=== PATIENT | female | born 1950 | race Caucasian/White ===

== ENCOUNTER 2017-10-11 22:20 | Emergency (ER) | payer OTHER, MEDICARE ==
[~2017-10-11] VITALS: Ht 165.1 cm; Wt 97.0 kg
[~2017-10-11 22:20] MED LIST: ALPRAZOLAM0.5 M4 PO; AMARYL 2 MG2 MG PO; AMLODIPINE BESY10 MG PO; CALCIUM ACETAT667 M3 PO; CHILDREN'S ASPI81 M1 PO; CHOLESTYRAMINE1 PO1 PO; COZAAR 50MG TAB50 MG PO; COZAAR50 M1 PO; DIPHENOX/ATROPI1 TAB PO; DIPHENOXYLATE/A1 TAB PO; IMIPRAMINE HCL25 M1 PO; IMIPRAMINE HCL50 M1 PO; ISOSORBIDE MONO30 M1 PO; LASIX80 MG PO; LEVOTHYROXINE0.2 M2 PO; LEVOTHYROXINE125 MCG PO; LIPITOR20 M2 PO; LOPRESSOR 25MG25 MG PO; MACROBID100 MG PO; METOPROLOL SUCC25 M1 PO; NEPHRO-VITE TA0.8 MG PO; OMEPRAZOLE20 M2 PO; OMEPRAZOLE40 MG PO; PROAIR HFA8.5 GM INH; PROTONIX 40MG T40 MG PO; RENVELA800 MG PO; SENSIPAR30 M1 PO; TRADJENTA5 M1 PO; URSODIOL300 MG PO
--- NOTE | 2017-10-11 22:23 | ED GI/GU/ABDOMINAL COMPLAINT ---
History of Present Illness General Chief Complaint: Nausea, Vomiting, Diarrhea Stated Complaint: BIBA C/C VOMITING X 1 MONTH Source: patient Exam Limitations: no limitations Vital Signs & Intake/Output Vital Signs & Intake/Output Vital Signs Date Time Temp Pulse Resp B/P B/P Pulse O2 O2 Flow FiO2 Mean Ox Delivery Rate 10/12 0158 98.4 70 20 180/88 98 Room Air 10/12 0044 80 190/90 10/12 0020 98.3 80 18 190/90 96 Room Air 10/11 2223 97.3 86 18 205/93 97 Room Air ED Intake and Output 10/12 0000 10/11 1200 Intake Total Output Total Balance Patient 214 lb Weight Weight Reported by Patient Measurement Method Allergies Coded Allergies: NO KNOWN ALLERGIES (09/25/14) Reconcile Medications Albuterol Sulfate (Proair Hfa) 90 MCG HFA.AER.AD 2 INH INH Q6P PRN TROUBLE BREATHING Alprazolam 0.5 MG TABLET 1 TAB PO DAILY ANXIETY (Reported) Aspirin (Children's Aspirin) 81 MG TAB.CHEW 1 TAB PO DAILY HEART HEALTH ( Reported) Atorvastatin Calcium (Lipitor) 20 MG TABLET 1 TAB PO DAILY CHOLESTEROL ( Reported) Calcium Acetate 667 MG CAPSULE 4 CAP PO TID SUPPLEMENT (Reported) Cinacalcet HCl (Sensipar) 30 MG TABLET 1 TAB PO DAILY UNKNOWN (Reported) Imipramine HCl 25 MG TABLET 1 TAB PO DAILY PANIC ATTACKS (Reported) Imipramine HCl 50 MG TABLET 1 TAB PO DAILY PANIC ATTACKS (Reported) Isosorbide Mononitrate (Isosorbide Mononitrate ER) 30 MG TAB.ER.24H 1 TAB PO DAILY HEART (Reported) Levothyroxine Sodium 125 MCG TABLET 1 TAB PO DAILY AC THYROID (Reported) Linagliptin (Tradjenta) 5 MG TABLET 1 TAB PO DAILY DM (Reported) Losartan Potassium (Cozaar) 50 MG TABLET 1 TAB PO DAILY HTN (Reported) Metoclopramide HCl (Reglan) 10 MG TABLET 1 TAB PO 4 TIMES/DAY NAUSEA, VOMITING. 30 minutes before meals and bedtime Metoprolol Succinate 25 MG TAB 1 TAB PO DAILY HTN (Reported) Nephro-Vitamins (Nephro-Kiesha Tablet) 0.8 MG TABLET 1 TAB PO DAILY SUPPLEMENT (Reported) Omeprazole 20 MG CAPSULE.DR 1 CAP PO DAILY GI (Reported) Ondansetron (Zofran Odt) 4 MG TAB.RAPDIS 1 TAB SL 4 TIMES/DAY PRN NAUSEA Triage Nurses Notes Reviewed? yes ? n Is pt currently ? No Duration: week(s):, waxing and waning Timing: recent history Quality/Severity: burning, cramping Location: generalized abdomen Radiation: no radiation Activities at Onset: none Modifying Factors: Worsens With: vomiting. Associated Symptoms: abdominal pain, nausea/vomiting HPI: 67 yo woman h/o left arm fracture h/o esrd on hemodialysis presents with several weeks of intermittent vomiting, "Last week, I vomited once , but then today, I vomited 5-6 times." Mild mid epigastric abdominal discomfort. No fever, chest pain, dyspnea, diarrhea, syncopal symptoms. She is otherwise well and does not identify any etiology. Past History Travel History Traveled to [place] past 21 day No Medical History Any Pertinent Medical History? see below for history Neurological: NONE EENT: NONE Cardiovascular: CHF, myocardial infarction, HTN, HIGH CHOL PTCA/stents Respiratory: NONE Gastrointestinal: upper GI bleed Hepatic: NONE Renal: ESRD on HD Musculoskeletal: CARPAL TUNNEL LEFT HAND Psychiatric: anxiety, depression Endocrine: diabetes, hypothyroidism Blood Disorders: NONE Cancer(s): UTERINE CANCER 1998 History of MRSA: No History of VRE: No History of CDIFF: No Surgical History Surgical History: non-contributory Psychosocial History Who do you live with Patient/Self Services at Home None What is your primary language Dutch Tobacco Use: Quit >30 days ago Family History Family History, If Any: FATHER FH: colon cancer MOTHER FH: lung cancer BROTHER FH: kidney cancer Hx Contributory? No Review of Systems Review of Systems Constitutional: Reports: no symptoms. EENTM: Reports: no symptoms. Respiratory: Reports: no symptoms. Cardiovascular: Reports: no symptoms. GI: Reports: no symptoms. Genitourinary: Reports: no symptoms. Musculoskeletal: Reports: no symptoms. Skin: Reports: no symptoms. Neurological/Psychological: Reports: no symptoms. Hematologic/Endocrine: Reports: no symptoms. Immunologic/Allergic: Reports: no symptoms. All Other Systems: Reviewed and Negative Physical Exam Physical Exam General Appearance: well developed/nourished, no apparent distress Head: atraumatic, normal appearance Eyes: Bilateral: normal appearance. Ears, Nose, Throat, Mouth: hearing grossly normal, moist mucous membrane Neck: normal inspection, supple, full range of motion Respiratory: normal breath sounds, chest non-tender, no respiratory distress, quiet respiration, lungs clear Cardiovascular: regular rate/rhythm Gastrointestinal: normal bowel sounds, soft, mild mid epigastric tenderness Back: normal inspection Extremities: normal range of motion Neurologic/Psych: no motor/sensory deficits, awake, alert, oriented x 3 Skin: intact, normal color, warm/dry Core Measures ACS in differential dx? No Sepsis Present: No Sepsis Focused Exam Completed? No Progress Differential Diagnosis: biliary colic, bowel obstruction, diverticulitis, gastritis, hepatitis Plan of Care: Orders Procedure Date/time Status TROPONIN LEVEL 10/11 2222 Complete LIPASE 10/11 2222 Complete HEPATIC FUNCTION PANEL 10/11 2222 Complete CBC WITHOUT DIFFERENTIAL 10/11 2222 Complete BASIC METABOLIC PANEL 10/11 2222 Complete AMYLASE 10/11 2222 Complete EKG 10/11 2222 Active Laboratory Tests 10/11/178: Anion Gap 18 H, Estimated GFR 4 L, BUN/Creatinine Ratio 7.0, Glucose 182 H, Calcium 9.4, Total Bilirubin 0.7, Direct Bilirubin 0.7 H, AST 20, ALT 26, Alkaline Phosphatase 364 H, Troponin I 0.02, Total Protein 7.2, Albumin 3.9, Amylase 93, Lipase 414 H, CBC w Diff NO MAN DIFF REQ, RBC 3.84 L, MCV 89.7, MCH 30.1, MCHC 33.5, RDW 15.2 H, MPV 6.5 L, Gran % 77.7 H, Lymphocytes % 13.9 L, Monocytes % 4.5, Eosinophils % 3.8, Basophils % 0.1, Absolute Granulocytes 5.0, Absolute Lymphocytes 0.9 L, Absolute Monocytes 0.3, Absolute Eosinophils 0.2, Absolute Basophils 0 10/11/172222: D-Dimer High Sensitivty Cancelled Diagnostic Imaging: Viewed by Me: Radiology Read, CT Scan. Discussed w/RAD: Radiology Read, CT Scan. Radiology Impression: PATIENT: YUDITH ORELLANA PRESENT AGE: 67 PATIENT ACCOUNT NO: [id number] : 48 LOCATION: [facility] ORDERING PHYSICIAN: Louie Rogers MD SERVICE DATE: 10/11/17 EXAM TYPE: CAT - CT ABD & PELVIS W/O IV CONTRAS EXAMINATION: CT ABDOMEN AND PELVIS WITHOUT CONTRAST CLINICAL INFORMATION: Vomiting. COMPARISON: Abdominal CT from 09/26/2014. TECHNIQUE: Multidetector volumetric imaging was performed from the superior aspect of the liver through the pubic symphysis. Sagittal and coronal reformatted images were obtained on the technologist's workstation. DLP: 1054.3 mGy-cm FINDINGS: The imaged portions of the lungs are clear. Mild cardiomegaly is stable. There are no pleural effusions. The patient is status post a prior cholecystectomy. Significant mesenteric vascular calcifications are again visible. Hepatomegaly is unchanged. The unenhanced spleen, pancreas, and adrenal glands are grossly unremarkable. Multiple bilateral renal cysts are present, also evident on previous imaging. There is an exophytic 3 cm nodular lesion arising from the posterolateral right renal cortex which does not measure fluid attenuation and was not present on the prior study. Renal cortical atrophy is unchanged. There is no hydronephrosis. Moderate atherosclerotic wall calcifications noted in the abdominal aorta without aneurysmal dilatation. No retroperitoneal adenopathy is seen. Gastric varices are again visible. There are multiple surgical clips along the pelvic rucker, also evident on prior imaging. Scar visualized in the midline lower abdominal wall as well. There is no evidence of a bowel obstruction. A few scattered colonic diverticula are present without pericolonic inflammatory change. No large bowel thickening is seen. The bladder is partially distended. The patient has had a prior hysterectomy and bilateral oophorectomy. No free air or free fluid is seen. No drainable fluid collection is identified. No acute osseous abnormality is seen. Fatty marrow changes are pronounced in the sacrum. There are new degenerative endplate Schmorl's nodes at the lower thoracic levels with further loss of disc height and endplate spurring. Vacuum disc phenomena also present within the discs from the T9-T12 levels. IMPRESSION: No acute intra-abdominal or pelvic process on this limited noncontrast study. No free air or free fluid. No evidence of a bowel obstruction. Stable hepatomegaly and gastric varices. Mild cardiomegaly. Multiple renal cysts. No hydronephrosis. New 3 cm exophytic soft tissue nodular lesion arising from the right kidney which does not measure simple fluid attenuation. Although this may represent a proteinaceous or hemorrhagic cyst, a solid mass cannot be ruled out and further evaluation with renal sonography or a contrast enhanced study is recommended. Scattered colonic diverticula without evidence of diverticulitis. Chronic postsurgical changes. Imaging findings discussed with Dr. Rogers at 12:20 AM on 10/12/2017. DICTATED BY: Kristopher Coleman MD DATE/TIME DICTATED:10/12/172 CHAIN TESTING MACHINE OPERATOR:MAO DATE/ TIME TRANSCRIBED:10/12/172 CONFIDENTIAL, DO NOT COPY WITHOUT APPROPRIATE AUTHORIZATION. <Electronically signed in Other Vendor System> SIGNED BY: Kristopher Coleman MD 10/12/17 0022 Initial ED EKG: rbbb lafb Departure Departure Disposition: HOME OR SELF CARE Condition: Stable Clinical Impression Primary Impression: Abdominal pain Secondary Impressions: Vomiting Referrals: Gordon MUIR,Reagan Rios (PCP/Family) Departure Forms: Customer Survey General Discharge Information Prescriptions: Current Visit Scripts Ondansetron (Zofran Odt) 1 TAB SL 4 TIMES/DAY PRN NAUSEA #20 TAB Ref 1 Metoclopramide HCl (Reglan) 1 TAB PO 4 TIMES/DAY #120 TAB 30 minutes before meals and bedtime Comments 10/12/17, 0:18am... discussed with dr. coleman, radiologist. pt with 3cm right renal mass.... merits renal u/s or iv contrast. no other acute process. 10/12/17, 1:45am... discussed with patient at length... including mass in kidney. Pt expressed understanding at importance of follow up ultrasound. After supportive medications, pt tolerated oral fluids in the ED and felt comfortable being discharged. I suspect gastroparesis. I wrote for zofran and reglan. Close follow up advised.
[2017-10-11 22:55] LABS: ABSOLUTE BASOPHIL COUNT 0 /CUMM (0.0-0.2); ABSOLUTE EOSINOPHIL COUNT 0.2 /CUMM (0.0-0.7); ABSOLUTE LYMPH COUNT 0.9 /CUMM (1.2-3.4); ABSOLUTE MONOCYTE COUNT 0.3 /CUMM (0.10-0.60); BASOPHIL % 0.1 % (0.0-2.0); EOSINOPHIL % 3.8 % (0-5); GRANULOCYTE % 77.7 % (42.2-75.2); HEMATOCRIT 34.4 % (37-47); MEAN CORPUSCULAR HGB 30.1 PG (27.0-31.0); MEAN CORPUSCULAR HGB CONC 33.5 G/DL (33.0-37.0); MEAN CORPUSCULAR VOLUME 89.7 FL (81.0-99.0); MEAN PLATELET VOLUME 6.5 FL (7.4-10.4); PLATELET COUNT 245 /CUMM (130-400); RBC DISTRIBUTION WIDTH 15.2 % (11.5-14.5); RED BLOOD CELL CT 3.84 /CUMM (4.20-5.40); WHITE BLOOD CELL COUNT 6.4 /CUMM (4.8-10.8)
--- NOTE | 2017-10-11 23:29 | RADIOLOGY REPORT ---
EXAMINATION: XR PORTABLE CHEST CLINICAL INFORMATION: Chest pain. COMPARISON: Chest x-ray from 08/20/2017. TECHNIQUE: Portable frontal view of the chest was obtained. FINDINGS: No airspace opacities or pleural effusions are seen. The cardiomediastinal silhouette is unchanged. No acute osseous abnormality is evident. IMPRESSION: Clear lungs. No acute process.
--- NOTE | 2017-10-12 00:22 | CT SCAN REPORT ---
EXAMINATION: CT ABDOMEN AND PELVIS WITHOUT CONTRAST CLINICAL INFORMATION: Vomiting. COMPARISON: Abdominal CT from 09/26/2014. TECHNIQUE: Multidetector volumetric imaging was performed from the superior aspect of the liver through the pubic symphysis. Sagittal and coronal reformatted images were obtained on the technologist's workstation. DLP: 1054.3 mGy-cm FINDINGS: The imaged portions of the lungs are clear. Mild cardiomegaly is stable. There are no pleural effusions. The patient is status post a prior cholecystectomy. Significant mesenteric vascular calcifications are again visible. Hepatomegaly is unchanged. The unenhanced spleen, pancreas, and adrenal glands are grossly unremarkable. Multiple bilateral renal cysts are present, also evident on previous imaging. There is an exophytic 3 cm nodular lesion arising from the posterolateral right renal cortex which does not measure fluid attenuation and was not present on the prior study. Renal cortical atrophy is unchanged. There is no hydronephrosis. Moderate atherosclerotic wall calcifications noted in the abdominal aorta without aneurysmal dilatation. No retroperitoneal adenopathy is seen. Gastric varices are again visible. There are multiple surgical clips along the pelvic rucker, also evident on prior imaging. Scar visualized in the midline lower abdominal wall as well. There is no evidence of a bowel obstruction. A few scattered colonic diverticula are present without pericolonic inflammatory change. No large bowel thickening is seen. The bladder is partially distended. The patient has had a prior hysterectomy and bilateral oophorectomy. No free air or free fluid is seen. No drainable fluid collection is identified. No acute osseous abnormality is seen. Fatty marrow changes are pronounced in the sacrum. There are new degenerative endplate Schmorl's nodes at the lower thoracic levels with further loss of disc height and endplate spurring. Vacuum disc phenomena also present within the discs from the T9-T12 levels. IMPRESSION: No acute intra-abdominal or pelvic process on this limited noncontrast study. No free air or free fluid. No evidence of a bowel obstruction. Stable hepatomegaly and gastric varices. Mild cardiomegaly. Multiple renal cysts. No hydronephrosis. New 3 cm exophytic soft tissue nodular lesion arising from the right kidney which does not measure simple fluid attenuation. Although this may represent a proteinaceous or hemorrhagic cyst, a solid mass cannot be ruled out and further evaluation with renal sonography or a contrast enhanced study is recommended. Scattered colonic diverticula without evidence of diverticulitis. Chronic postsurgical changes. Imaging findings discussed with Dr. Rogers at 12:20 AM on 10/12/2017.
[2017-10-12] MEDS ORDERED: REGLAN10 M1 PO (01:36)
[2017-10-12] MEDS ORDERED: ZOFRAN ODT4 M1 SL (01:36)
[2017-10-12 01:58] VITALS: BP 180/88
== END 2017-10-12 01:59 ==
LOC: ERH 22:20
PROVIDERS: Pediatrics
DX: R11.10 Vomiting, unspecified (principal); R10.13 Epigastric pain
CPT/HCPCS: 71045; 74176; 93005; 93010; 96374; 96375; J2405; J2550